=== PATIENT | female | born 1990 | race American Indian/Alaskan Native ===

== ENCOUNTER 2017-08-25 01:41 | Emergency (ER) | payer MEDICAID ==
--- NOTE | 2017-08-25 05:44 | Emergency Department Report ---
Minor Respiratory - HPI Chief Complaint: Upper Respiratory Infection Stated Complaint: BACK PAIN Time Seen by Provider: 08/25/17 05:36 Duration: 2 weeks Pain Location: Throat, Nose Severity: moderate Minor Respiratory: Yes Rhinorrhea, Yes Sore Throat, Yes Able to Tolerate Fluids , Yes Cough, No Ear Pain, No Sick Contacts, No Hemoptysis, No Chest Pain, No Shortness of Breath, No Fever Other History: This is a 27 y.o. female presenting with body aches, cough, nausea and vomiting. Patient states she went to [facility] 2 weeks ago and diagnosed with sinusitis and given amoxicillin, ibuprofen, and prednisone. Patient states the symptoms improved for about 3 days and progressively got worse. ED Review of Systems ROS: Stated complaint: BACK PAIN Other details as noted in HPI Constitutional: no symptoms reported, see HPI, chills. denies: diaphoresis, fever, malaise, weakness Eyes: as per HPI. denies: eye pain, eye discharge, vision change ENT: as per HPI, throat pain, congestion. denies: ear pain, dental pain, hearing loss, epistaxis Respiratory: no symptoms reported, see HPI, cough. denies: orthopnea, shortness of breath, SOB with exertion, SOB at rest, stridor, wheezing Cardiovascular: as per HPI. denies: chest pain, palpitations, dyspnea on exertion, orthopnea, edema, syncope, paroxysmal nocturnal dyspnea Gastrointestinal: nausea, vomiting. denies: as per HPI, abdominal pain, diarrhea, constipation, hematemesis, melena, hematochezia Musculoskeletal: as per HPI, back pain, myalgia. denies: joint swelling Neurological: as per HPI. denies: headache, weakness, numbness, paresthesias, confusion, abnormal gait, vertigo Psychiatric: as per HPI. denies: anxiety, depression, auditory hallucinations, visual hallucinations, homicidal thoughts, suicidal thoughts ED Past Medical Hx - Past Medical History Previous Medical History?: Yes Hx Asthma: Yes Additional medical history: Hyperthyroid - Surgical History Past Surgical History?: Yes Additional Surgical History: ectopic preg - Social History Smoking Status: Never Smoker Substance Use Type: None Minor Respiratory Exam - Exam General: Vital signs noted. No distress. Alert and acting appropriately. HEENT: Yes Pharyngeal Erythema, Yes Rhinorrhea, Yes Maxillary Tenderness, No Pharyngeal Exudates, No Moist Mucous Membranes, No Conjuctival Injection, No Frontal Tenderness Ear: Neither TM Bulge, Neither TM Erythema, Neither EAC Pain, Neither EAC Discharge Neck: Yes Supple, No Adenopathy Lungs: Yes Good Air Exchange, Yes Ronchi, Yes Cough, No Wheezes, No Stridor, No Labored Respirations, No Retractions, No Use of Accessory Muscles, No Other Abnormal Lung Sounds Heart: Yes Regular, No Murmur Abdomen: Yes Normal Bowel Sounds, No Tenderness, No Peritoneal Signs Skin: No Rash, No Edema Neurologic: Alert and oriented, no deficits. Musculoskeletal: Unremarkable. ED Course Vital Signs 08/25/17 01:46 Temperature 98.7 F Pulse Rate 102 H Respiratory 17 Rate Blood Pressure 128/86 O2 Sat by Pulse 99 Oximetry ED Medical Decision Making - Medical Decision Making This is a 27 y.o. female, presenting with cough and body aches x 2 weeks. Patient was treated for sinusitis with amoxicillin, prednisone, and ibuprofen at [facility] 2 weeks ago when symptoms began. States she has completed steroids and almost done with antibiotics and symptoms are starting to get worse. Ordered rapid strep and flu. Patient decided to leave because her ride is leaving. She will be documented as eloped prior to medical decision. Critical care attestation.: If time is entered above; I have spent that time in minutes in the direct care of this critically ill patient, excluding procedure time. ED Disposition Condition: Stable Referrals: MASON BARROSO MD [Primary Care Provider] - 3-5 Days
[2017-08-25 06:15] VITALS: BP 113/82
== END 2017-08-25 06:20 | disposition left against medical advice (07) ==
LOC: ED 01:41
DX: M79.1 Myalgia (principal); R11.2 Nausea with vomiting, unspecified; R05 Cough; J45.909 Unspecified asthma, uncomplicated
CPT/HCPCS: 87116; 87400; 87430; 99282

== ENCOUNTER 2020-09-29 22:55 | Emergency (ER) | payer MEDICAID ==
[2020-09-29 23:26] VITALS: BP 133/93
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
== END 2020-09-30 00:30 | disposition home or self-care (01) ==
LOC: ED 22:55
DX: T23.102A Burn of first degree of left hand, unspecified site, initial encounter (principal); J45.909 Unspecified asthma, uncomplicated; F17.200 Nicotine dependence, unspecified, uncomplicated; Z79.899 Other long term (current) drug therapy; Z88.8 Allergy status to other drugs, medicaments and biological substances; X08.8XXA Exposure to other specified smoke, fire and flames, initial encounter; Y93.89 Activity, other specified; Y92.89 Other specified places as the place of occurrence of the external cause; Y99.8 Other external cause status
CPT/HCPCS: 99282

== ENCOUNTER 2021-06-23 20:06 | Emergency (ER) | payer MEDICAID ==
[2021-06-23 20:16] VITALS: BP 115/78
--- NOTE | 2021-06-23 21:22 | Emergency Department Report ---
ED General Adult HPI - General Chief complaint: Extremity Problem,Nontraumatic Stated complaint: LEFT ARM, BACK RIGHT LEG PAINS Time Seen by Provider: 06/23/21 21:13 Source: patient Mode of arrival: Ambulatory Limitations: No Limitations - History of Present Illness Initial comments: 30-year-old F [place] female with past medical history of thyroid disorder presents emerge department complaining of a ache and soreness to her left arm that occasionally radiates or changed over to her right leg and sometimes shoots up to her right shoulder off and on with no palliative or provocative factors. She reports no traumatic events she reports no swelling she reports no fever, chills, sweats. No chest pain, no palpitations, no shortness of breath, no h emoptysis no hematemesis hematochezia, no nausea or vomiting no numbness or tingling. She reports no injury to her neck or back she reports no fever, no sweats no suspicion of being been immunocompromised to her knowledge. She is however not compliant with her thyroid medications and states she is not been following the recommendations of previous doctors but the need to start thyroid medication Radiation: non-radiation Improves with: cold therapy Worsens with: none Associated Symptoms: denies other symptoms. denies: malaise, nausea/vomiting, shortness of breath, syncope, weakness - Related Data Previous Rx's Medication Instructions Recorded Last Taken Type Silver Sulfadiazine [Silvadene] 20 gm TP DAILY #1 cream..g. 09/29/20 Unknown Rx Allergies Allergy/AdvReac Type Severity Reaction Status Date / Time [place] [employer] Allergy Unknown Verified 09/29/20 23:15 ED Review of Systems ROS: Stated complaint: LEFT ARM, BACK RIGHT LEG PAINS Other details as noted in HPI Comment: All other systems reviewed and negative ED Past Medical Hx - Past Medical History Hx Asthma: Yes Additional medical history: Hyperthyroid - Surgical History Additional Surgical History: ectopic preg - Social History Smoking Status: Current Every Day Smoker Substance Use Type: Alcohol - Medications Home Medications: Home Medications Medication Instructions Recorded Confirmed Last Taken Type Silver Sulfadiazine [Silvadene] 20 gm TP DAILY #1 cream..g. 09/29/20 Unknown Rx ED Physical Exam - General Limitations: No Limitations General appearance: alert, in no apparent distress - Head Head exam: Present: atraumatic, normocephalic - Eye Eye exam: Present: normal appearance, PERRL, EOMI Pupils: Present: normal accommodation - ENT ENT exam: Present: normal exam, normal orophraynx, mucous membranes moist, TM's normal bilaterally - Neck Neck exam: Present: normal inspection, full ROM - Respiratory Respiratory exam: Present: normal lung sounds bilaterally. Absent: respiratory distress - Cardiovascular Cardiovascular Exam: Present: regular rate, normal rhythm. Absent: systolic murmur, diastolic murmur, rubs, gallop - GI/Abdominal GI/Abdominal exam: Present: soft, normal bowel sounds - Extremities Exam Extremities exam: Present: normal inspection - Back Exam Back exam: Present: normal inspection. Absent: CVA tenderness (R), CVA tenderness (L), paraspinal tenderness, vertebral tenderness - Neurological Exam Neurological exam: Present: alert, oriented X3, CN II-XII intact, normal gait - Psychiatric Psychiatric exam: Present: normal affect, normal mood. Absent: flat affect, manic - Skin Skin exam: Present: warm, dry, intact, normal color. Absent: rash ED Course Vital Signs 06/23/21 20:11 Temperature 98.2 F Pulse Rate 102 H Respiratory 18 Rate Blood Pressure 115/78 O2 Sat by Pulse 96 Oximetry Critical care attestation.: If time is entered above; I have spent that time in minutes in the direct care of this critically ill patient, excluding procedure time. ED Disposition Clinical Impression: Polymyalgia, Noncompliance with medication regimen Disposition: 01 HOME / SELF CARE / HOMELESS Is pt being admited?: No Does the pt Need Aspirin: No Condition: Stable Additional Instructions: He was seen in emergency department for general nontraumatic aches and pains to the musculoskeletal system. Your evaluation did not yield any emergent or urgent medical condition at this time it is safe you to follow-up with your primary care provider for further evaluation and management of this issue. Strongly recommended that you follow-up with your primary care provider and I followed the thyroid recommendations. Referrals: PRIMARY CARE, [Primary Care Provider] - 3-5 Days [facility] [Provider Group] - 3-5 Days
== END 2021-06-23 21:50 | disposition home or self-care (01) ==
LOC: ED 20:06
DX: M35.3 Polymyalgia rheumatica (principal); Z91.14 Patient's other noncompliance with medication regimen; J45.909 Unspecified asthma, uncomplicated; F17.200 Nicotine dependence, unspecified, uncomplicated; F10.20 Alcohol dependence, uncomplicated; Z91.018 Allergy to other foods
CPT/HCPCS: 99282

== ENCOUNTER 2022-05-15 00:24 | Emergency (ER) | payer SELFPAY ==
[2022-05-15 00:32] VITALS: BP 147/88
== END 2022-05-15 07:58 | disposition left against medical advice (07) ==
LOC: ED 00:24
DX: J11.1 Influenza due to unidentified influenza virus with other respiratory manifestations (principal); Z53.21 Procedure and treatment not carried out due to patient leaving prior to being seen by health care provider